=== PATIENT | male | born 1965 | race Caucasian/White ===

== ENCOUNTER 2018-06-04 07:45 | Day surgery (SDC) | payer OTHER ==
[2018-05-30 14:42] LABS: Basophils # (auto) 0 uL; Basophils % (auto) 0.5 % (0.0-2.0); Eosinophils # (auto) 0.2 uL; Eosinophils % (auto) 2.1 % (0.0-7.0); Hematocrit 50.2 % (41.0-53.0); Hemoglobin 16.8 g/dL (13.5-17.5); Lymphocytes # (auto) 0.7 uL; Lymphocytes % (auto) 7.7 % (10.0-50.0); Mean Corpuscular Hemoglobin 31.2 pg (28.0-32.0); Mean Corpuscular Hgb Conc. 33.6 g/dL (32.0-36.0); Mean Corpuscular Volume 92.9 fL (80.0-100.0); Monocytes # (auto) 0.7 uL; Monocytes % (auto) 8.2 % (0.0-12.0); Neutrophils # (auto) 7.1 uL; Neutrophils % (auto) 81.5 % (37.0-80.0); Platelet Count (auto) 251 10^3/uL (140-450); Red Cell Distribution Width 15.6 % (11.8-14.3); White Blood Cell 8.7 10^3/uL (4.4-10.8)
[2018-05-30 14:48] LABS: Urine Bacteria NONE SEEN /hpf (None Seen); Urine Blood Negative /uL (Negative); Urine Specific Gravity 1.005 (1.001-1.035); Urine WBC 1 /hpf (0 - 3)
[2018-05-30 15:00] LABS: Albumin 3.5 g/dL (3.4-5.0); Calcium 8.8 mg/dL (8.5-10.1); Potassium 4.1 mmol/L (3.5-5.1)
[2018-05-30 15:03] LABS: Bilirubin, Total 0.4 mg/dL (0.2-1.0); Total Protein 8.2 g/dL (6.4-8.2)
[2018-05-30 15:16] LABS: INR 0.98 (0.9-1.15); Partial Thromboplastin Time 27.7 sec (23.78-33.04); Prothrombin Time 10.5 sec (9.27-12.13)
[~2018-06-04] VITALS: Ht 185.4 cm; Wt 82.1 kg
[~2018-06-04 07:45] MED LIST: ADAL40IN SC
[2018-06-04] MEDS ORDERED: ceFAZolin 1GM/50ML 50 ML IV ONE (07:55)
[2018-06-04] MEDS ORDERED: MIDAZOLAM HCL 1MG/1ML-2 ML VIAL ONE (09:35)
[2018-06-04] MEDS ORDERED: SODIUM CHLORIDE LOCK 10 ML ONE (09:35)
[2018-06-04] MEDS ORDERED: fentaNYL CITRATE 100 MCG/2 ML VL ONE (09:35)
[2018-06-04] MEDS ORDERED: ONDANSETRON HCL 4 MG/2 ML VIAL ONE (09:35)
[2018-06-04] MEDS ORDERED: PROPOFOL 10 MG/ML 20 ML IV ONE (09:35)
[2018-06-04 10:54] VITALS: BP 156/96
== END 2018-06-04 11:00 | disposition home or self-care (01) ==
LOC: SUR 07:45
PROVIDERS: ATTEND Podiatrist Foot & Ankle Surgery
DX: M89.8X7 Other specified disorders of bone, ankle and foot (principal); K50.90 Crohn's disease, unspecified, without complications; I12.9 Hypertensive chronic kidney disease with stage 1 through stage 4 chronic kidney disease, or unspecified chronic kidney disease; N18.2 Chronic kidney disease, stage 2 (mild)
CPT/HCPCS: 28112; 36415; 80053; 81001; 85025; 85610; 85730; 88304; 88311; J0690; J2250; J2405; J2704; J3010; L3260

== ENCOUNTER → 2018-08-06 | Day surgery (SDC) | payer OTHER ==
[2018-08-05 15:35] LABS: Albumin 3.2 g/dL (3.4-5.0); Calcium 8.7 mg/dL (8.5-10.1); Potassium 3.8 mmol/L (3.5-5.1)
[2018-08-05 15:38] LABS: BUN/Creatinine Ratio 19.6; Bilirubin, Total 0.3 mg/dL (0.2-1.0); Total Protein 8.3 g/dL (6.4-8.2)
[2018-08-05 15:41] LABS: INR 1.02 (0.9-1.15); Prothrombin Time 10.9 sec (9.27-12.13)
[2018-08-05 16:14] LABS: Urine Bacteria NONE SEEN /hpf (None Seen); Urine Blood Negative /uL (Negative); Urine Specific Gravity 1.005 (1.001-1.035); Urine WBC <1 /hpf (0 - 3)
[~2018-08-06] VITALS: Ht 185.4 cm; Wt 77.1 kg
[~2018-08-06] MED LIST changes: +HYDR50TA15 PO; +HYDROmorphone HCL 2 MG/ML VL ONE; +KETOROLAC TROMETH 30 MG/ML 1ML VIAL IV ONE; +LABETALOL HCL 5 MG/ML 4ML SYRINGE IV PRN; +MIDAZOLAM HCL 1MG/1ML-2 ML VIAL IV PRN; +MIDAZOLAM HCL 1MG/1ML-2 ML VIAL ONE; +MORPHINE SULFATE 4 MG/ML SYR/VIAL IV ONE; +MORPHINE SULFATE 4 MG/ML SYR/VIAL IV PRN; +ONDANSETRON HCL 4 MG/2 ML VIAL IV ONE; +ceFAZolin 1GM VL ONE; +ceFAZolin 1GM/50ML 50 ML IV ONE; +fentaNYL CITRATE 100 MCG/2 ML VL ONE; +hydrALAZINE HCL 20 MG/ML VL IV PRN
[2018-08-06 16:18] LABS: Basophils # (auto) 0.1 uL; Basophils % (auto) 0.7 % (0.0-2.0); Eosinophils # (auto) 0.1 uL; Eosinophils % (auto) 1.8 % (0.0-7.0); Hemoglobin 15.7 g/dL (13.5-17.5); Lymphocytes # (auto) 0.9 uL; Lymphocytes % (auto) 11.5 % (10.0-50.0); Mean Corpuscular Hemoglobin 31.2 pg (28.0-32.0); Mean Corpuscular Hgb Conc. 32.7 g/dL (32.0-36.0); Mean Corpuscular Volume 95.3 fL (80.0-100.0); Monocytes # (auto) 0.8 uL; Monocytes % (auto) 10.5 % (0.0-12.0); Neutrophils # (auto) 5.8 uL; Neutrophils % (auto) 75.5 % (37.0-80.0); Nucleated Red Blood Cells % 0.1 %; Platelet Count (auto) 199 10^3/uL (140-450); Red Blood Cells 5.03 10^6/uL (4.5-5.90); Red Cell Distribution Width 14.6 % (11.8-14.3); White Blood Cell 7.7 10^3/uL (4.4-10.8)
[2018-08-06] MEDS: HYDROmorphone HCL 2 MG/ML VL IV PRN ×4 (17:43→18:16)
[2018-08-06 18:29] VITALS: BP 144/95
== END | disposition home or self-care (01) ==
LOC: SUR 12:48
PROVIDERS: ATTEND Podiatrist Foot & Ankle Surgery
DX: L03.115 Cellulitis of right lower limb (principal); I10 Essential (primary) hypertension; Z98.890 Other specified postprocedural states; Z79.899 Other long term (current) drug therapy
CPT/HCPCS: 10061; 36415; 80053; 81001; 85025; 85610; 85730; 87070; 87075; 87205; C1887; J0690; J1170; J2250; J3010; Q4138

== ENCOUNTER 2023-05-05 03:01 | Inpatient (IN) | payer BC, OTHER ==
[~2023-05-05] VITALS: Ht 188 cm; Wt 8.0 kg
[~2023-05-05 03:01] MED LIST changes: +HYDR-4297 PO; -HYDR50TA15 PO; -HYDROmorphone HCL 2 MG/ML VL ONE; -KETOROLAC TROMETH 30 MG/ML 1ML VIAL IV ONE; -LABETALOL HCL 5 MG/ML 4ML SYRINGE IV PRN; -MIDAZOLAM HCL 1MG/1ML-2 ML VIAL IV PRN; -MIDAZOLAM HCL 1MG/1ML-2 ML VIAL ONE; -MORPHINE SULFATE 4 MG/ML SYR/VIAL IV ONE; -MORPHINE SULFATE 4 MG/ML SYR/VIAL IV PRN; -ONDANSETRON HCL 4 MG/2 ML VIAL IV ONE; -ceFAZolin 1GM VL ONE; -ceFAZolin 1GM/50ML 50 ML IV ONE; -fentaNYL CITRATE 100 MCG/2 ML VL ONE; -hydrALAZINE HCL 20 MG/ML VL IV PRN
[2023-05-05 04:00] LABS: Basophils # (auto) 0.1 10 ^3/uL (0-0.2); Basophils % (auto) 0.5 % (0.0-2.0); Eosinophils # (auto) 0.1 10 ^3/uL (0-0.8); Eosinophils % (auto) 1.2 % (0.0-7.0); Hematocrit 46.1 % (41.0-53.0); Hemoglobin 15.2 g/dL (13.5-17.5); Lymphocytes % (auto) 8.6 % (10.0-50.0); Mean Corpuscular Hemoglobin 29.5 pg (28.0-32.0); Mean Corpuscular Volume 89.3 fL (80.0-100.0); Monocytes # (auto) 1.2 10 ^3/uL (0-1.3); Monocytes % (auto) 9.6 % (0.0-12.0); Neutrophils # (auto) 9.7 10 ^3/uL (1.6-8.6); Neutrophils % (auto) 80.1 % (37.0-80.0); Red Blood Cells 5.16 10^6/uL (4.5-5.90); Red Cell Distribution Width 15.3 % (11.8-14.3); White Blood Cell 12.1 10^3/uL (4.4-10.8)
[2023-05-05 04:06] LABS: Urine Bacteria FEW /hpf (None Seen); Urine Blood 2+ /uL (Negative); Urine Clarity CLOUDY (Clear); Urine Protein, UAD 1+ (Negative); Urine Specific Gravity 1.013 (1.001-1.035); Urine Urobilinogen Normal (Negative); Urine WBC 1721 /hpf (0 - 3); Urine WBC Clumps PRESENT /hpf (None Seen)
[2023-05-05 04:08] LABS: Urine Color Straw (Yellow)
[2023-05-05 04:13] LABS: Alanine Aminotransferase 17 U/L (7-40); Albumin 4.6 g/dL (3.2-4.8); Alkaline Phosphatase 71 U/L (46-116); Anion Gap 11 (5-15); Aspartate Aminotransferase < 8 U/L (13-40); BUN/Creatinine Ratio 15.1 (10.0-20.0); Bilirubin, Total 0.2 mg/dL (0.2-1.0); Calcium 9.7 mg/dL (8.7-10.4); Carbon Dioxide 23 mmol/L (20-30); Chloride 102 mmol/L (98-107); Glucose 71 mg/dL (74-106); Sodium 136 mmol/L (136-145); Total Protein 8.8 g/dL (5.7-8.2)
[2023-05-05 04:41] LABS: Blood Urea Nitrogen 87 mg/dL (9-23); Potassium 5.6 mmol/L (3.5-5.1)
[2023-05-05] MEDS ORDERED: HYDROmorphone HCL 2 MG/ML VL/or syr IV ONE ×3 (06:00→12:45)
[2023-05-05] MEDS ORDERED: SODIUM BICARBONATE 8.4% INJ 50ML SYRINGE IV ONE (06:00)
[2023-05-05] MEDS ORDERED: SODIUM CHLORIDE 0.9% 2,250 ML IV ONE (06:00)
[2023-05-05] MEDS ORDERED: ONDANSETRON HCL 4 MG/2 ML VIAL IV ONE ×2 (06:00→07:00)
[2023-05-05] MEDS ORDERED: InsuLIN REG 1unit/0.01ml Soln (100units/ml) IV ONE (06:00)
[2023-05-05] MEDS ORDERED: CALCIUM GLUC 1,000mg/50ml-NS 50 ML IV ONE (06:00)
[2023-05-05] MEDS ORDERED: SODIUM ZIRCONIUM CYCL 10 GM PAK PO ONE (06:00)
[2023-05-05] MEDS ORDERED: DEXTROSE (50%) 50ML SYRG IV ONE (06:00)
[2023-05-05] MEDS ORDERED: cefTRIAXone 1GM/50ML D5W 50 ML IV ONE (06:00)
[2023-05-05 06:26] VITALS: PULSE 113; RESP 24; O2SAT 97
[2023-05-05 08:10] VITALS: PULSE 118; RESP 20; O2SAT 98
[2023-05-05] MEDS ORDERED: MORPHINE SULFATE INJ 2 MG/ml SYRG IV PRN (09:30)
[2023-05-05] MEDS ORDERED: SODIUM CHLORIDE 0.9% 1,000 ML IV SCH (09:30)
[2023-05-05] MEDS ORDERED: ACETAMINOPHEN 325 MG TAB PO PRN (09:30)
[2023-05-05] MEDS ORDERED: NITROGLYCERIN 0.4 MG SL TAB SL PRN (09:30)
[2023-05-05] MEDS ORDERED: BELLADONNA ALKAL/OPIUM (16.2/30MG) RECT SUPP PR ONE (09:45)
[2023-05-05] MEDS ORDERED: HYDROmorphone HCL 2 MG/ML VL/or syr IV PRN (09:45)
[2023-05-05] MEDS: cefTRIAXone 1GM/50ML D5W 50 ML IV SCH (10:20)
[2023-05-05 12:37] LABS: Protein, Urine 44.7 mg/dL (0.0-11.9)
[2023-05-05 12:40] LABS: Creatinine, Urine 32.35 mg/dL (30.0-125.0)
[2023-05-05] MEDS: SODIUM CHLORIDE 0.9% 1,000 ML IV SCH ×2 (12:40→23:47)
[2023-05-05] MEDS ORDERED: LABETALOL HCL 5 MG/ML 4ML SYRINGE IV ONE (12:45)
[2023-05-05 20:05] VITALS: PULSE 98; RESP 14; O2SAT 97
[2023-05-05] MEDS: hydrALAZINE HCL 20 MG/ML VL IV PRN (20:41)
[2023-05-05] MEDS: HYDROmorphone HCL 2 MG/ML VL/or syr IV PRN ×2 (20:42→23:53)
[2023-05-06] MEDS: SODIUM CHLORIDE 0.9% 1,000 ML IV SCH ×2 (00:49→18:00)
[2023-05-06] MEDS: HYDROcodone-ACET 5/325MG TAB PO PRN ×2 (00:49→05:59)
[2023-05-06] MEDS ORDERED: ONDANSETRON HCL 4 MG/2 ML VIAL ONE (02:19)
[2023-05-06] MEDS: hydrALAZINE HCL 20 MG/ML VL IV PRN (03:20)
[2023-05-06] MEDS: HYDROmorphone HCL 2 MG/ML VL/or syr IV PRN ×4 (03:21→13:19)
[2023-05-06 04:44] LABS: Basophils # (auto) 0.1 10 ^3/uL (0-0.2); Basophils % (auto) 0.6 % (0.0-2.0); Eosinophils # (auto) 0.3 10 ^3/uL (0-0.8); Eosinophils % (auto) 2.4 % (0.0-7.0); Hematocrit 46.3 % (41.0-53.0); Hemoglobin 15.4 g/dL (13.5-17.5); Lymphocytes # (auto) 1.4 10 ^3/uL (0.4-5.4); Lymphocytes % (auto) 11.9 % (10.0-50.0); Mean Corpuscular Hemoglobin 29.5 pg (28.0-32.0); Mean Corpuscular Hgb Conc. 33.3 g/dL (32.0-36.0); Mean Corpuscular Volume 88.4 fL (80.0-100.0); Monocytes # (auto) 1.1 10 ^3/uL (0-1.3); Monocytes % (auto) 8.8 % (0.0-12.0); Neutrophils # (auto) 9.1 10 ^3/uL (1.6-8.6); Neutrophils % (auto) 76.3 % (37.0-80.0); Red Blood Cells 5.23 10^6/uL (4.5-5.90); Red Cell Distribution Width 15.1 % (11.8-14.3); White Blood Cell 11.9 10^3/uL (4.4-10.8)
[2023-05-06 04:57] LABS: Alanine Aminotransferase 14 U/L (7-40); Albumin 3.7 g/dL (3.2-4.8); Alkaline Phosphatase 59 U/L (46-116); Anion Gap 9 (5-15); Aspartate Aminotransferase 14 U/L (13-40); BUN/Creatinine Ratio 15.5 (10.0-20.0); Calcium 8.4 mg/dL (8.7-10.4); Carbon Dioxide 21 mmol/L (20-30); Chloride 103 mmol/L (98-107); Glucose 101 mg/dL (74-106); Potassium 4.6 mmol/L (3.5-5.1); Sodium 133 mmol/L (136-145)
[2023-05-06 04:58] LABS: Bilirubin, Total 0.3 mg/dL (0.2-1.0); Total Protein 7.2 g/dL (5.7-8.2)
[2023-05-06 05:04] LABS: Blood Urea Nitrogen 70 mg/dL (9-23)
[2023-05-06 07:28] VITALS: PULSE 98; RESP 17; O2SAT 96
[2023-05-06 08:55] VITALS: BP 126/87; PULSE 109; RESP 20; TEMP 98.3; O2SAT 97
[2023-05-06] MEDS: cefTRIAXone 1GM/50ML D5W 50 ML IV SCH (10:04)
[2023-05-06] MEDS ORDERED: TAMS-35 PO (10:39)
[2023-05-06] MEDS ORDERED: LACTULOSE 20Gm/30ML SOLN PO PRN (14:00)
[2023-05-06] MEDS ORDERED: METOPROLOL TARTRATE 1MG/1ML-5ML VIAL IV ONE (14:00)
[2023-05-06 14:15] VITALS: BP 145/99; PULSE 55; RESP 21; O2SAT 96
[2023-05-06] MEDS ORDERED: ADENOSINE 6 MG/2 ML INJ IV ONE (14:45)
[2023-05-06 15:02] LABS: INR 1.16 (0.9-1.15); Prothrombin Time 12.1 sec (9.3-11.8)
[2023-05-06] MEDS ORDERED: METOPROLOL SUCCINATE XL 50 MG TAB PO ONE (15:15)
[2023-05-06] MEDS ORDERED: AMIODARONE HCL 200 MG TAB PO ONE (15:15)
[2023-05-06] MEDS: metroNIDAZOLE 500MG/100ML 100 ML IV SCH ×2 (16:00→21:39)
[2023-05-06] MEDS ORDERED: dilTIAZem 25 MG/5 ML VIAL IV ONE (16:15)
[2023-05-06 16:57] VITALS: BP 132/94; PULSE 100; RESP 20; TEMP 98.3; O2SAT 97
[2023-05-06] MEDS: BETHANECHOL CHLORIDE 25 MG TAB PO SCH ×2 (17:30→21:37)
[2023-05-06 17:52] LABS: Magnesium 1.8 mg/dL (1.6-2.6)
[2023-05-06 20:00] VITALS: PULSE 94
[2023-05-06] MEDS: AMIODARONE HCL 200 MG TAB PO SCH (21:37)
[2023-05-06 22:00] VITALS: BP 133/89; PULSE 95; RESP 20; TEMP 98.2; O2SAT 96
[2023-05-06 23:40] LABS: INR 1.15 (0.9-1.15); Partial Thromboplastin Time 34.5 SEC (24.5-34.5)
[2023-05-07] VITALS (10 sets, daily range): BP systolic 114–139; BP diastolic 81–99; PULSE 67–95; RESP 17–19; TEMP 97.4–98.1; O2SAT 92–99
[2023-05-07] MEDS: HYDROmorphone HCL 2 MG/ML VL/or syr IV PRN ×4 (01:59→21:17)
[2023-05-07] MEDS: metroNIDAZOLE 500MG/100ML 100 ML IV SCH ×3 (06:10→21:18)
[2023-05-07] MEDS: BETHANECHOL CHLORIDE 25 MG TAB PO SCH ×3 (06:10→21:14)
[2023-05-07 07:12] LABS: Basophils # (auto) 0.1 10 ^3/uL (0-0.2); Basophils % (auto) 0.6 % (0.0-2.0); Eosinophils # (auto) 0.3 10 ^3/uL (0-0.8); Eosinophils % (auto) 2.4 % (0.0-7.0); Hematocrit 45.1 % (41.0-53.0); Hemoglobin 14.8 g/dL (13.5-17.5); Lymphocytes # (auto) 1.5 10 ^3/uL (0.4-5.4); Lymphocytes % (auto) 12.3 % (10.0-50.0); Mean Corpuscular Hemoglobin 29.1 pg (28.0-32.0); Mean Corpuscular Hgb Conc. 32.9 g/dL (32.0-36.0); Mean Corpuscular Volume 88.5 fL (80.0-100.0); Monocytes % (auto) 8.6 % (0.0-12.0); Neutrophils % (auto) 76.1 % (37.0-80.0); Nucleated Red Blood Cells % 0.1 %; Red Cell Distribution Width 14.9 % (11.8-14.3); White Blood Cell 11.8 10^3/uL (4.4-10.8)
[2023-05-07 07:15] LABS: Calcium 8.7 mg/dL (8.7-10.4); Chloride 105 mmol/L (98-107); Potassium 3.7 mmol/L (3.5-5.1); Sodium 136 mmol/L (136-145)
[2023-05-07 07:16] LABS: Anion Gap 12 (5-15); Carbon Dioxide 19 mmol/L (20-30)
[2023-05-07 07:21] LABS: BUN/Creatinine Ratio 12.6 (10.0-20.0); Glucose 88 mg/dL (74-106)
[2023-05-07 07:29] LABS: Blood Urea Nitrogen 53 mg/dL (9-23)
[2023-05-07] MEDS ORDERED: fentaNYL CITRATE 100 MCG/2 ML VL ONE (07:51)
[2023-05-07] MEDS ORDERED: MIDAZOLAM HCL 2MG/2ML 2ml VIAL (1mg/ml) ONE ×2 (07:51→09:25)
[2023-05-07] MEDS ORDERED: PROPOFOL 10 MG/ML 20 ML IV ONE ×3 (07:51→10:39)
[2023-05-07] MEDS ORDERED: SODIUM CHLORIDE LOCK 10 ML ONE (07:51)
[2023-05-07] MEDS ORDERED: ONDANSETRON HCL 4 MG/2 ML VIAL ONE (07:51)
[2023-05-07] MEDS ORDERED: BUPIVACAINE 0.5% P/F INJ 10 ML VIAL ONE (07:51)
[2023-05-07] MEDS ORDERED: DexAMETHasone SOD PHOS 10MG/1ML VIAL INJ ONE (07:51)
[2023-05-07] MEDS: cefTRIAXone 1GM/50ML D5W 50 ML IV SCH (08:39)
[2023-05-07] MEDS: METOPROLOL SUCCINATE XL 50 MG TAB PO SCH (08:39)
[2023-05-07] MEDS: AMIODARONE HCL 200 MG TAB PO SCH ×2 (08:40→21:14)
[2023-05-07] MEDS ORDERED: EPINEPHrine HCL 1 MG/1 ML AMP ONE (08:47)
[2023-05-07] MEDS ORDERED: HYDROmorphone HCL 2 MG/ML VL/or syr IV PRN ×2 (09:00)
[2023-05-07] MEDS ORDERED: MORPHINE SULFATE INJ 2 MG/ml SYRG IV PRN (09:00)
[2023-05-07] MEDS ORDERED: METOCLOPRAMIDE HCL 5MG/ml INJ 2ml VIAL IV PRN (09:00)
[2023-05-07] MEDS ORDERED: CIPROFLOXACIN 400MG/200ML 200 ML IV ONE (09:10)
[2023-05-07] MEDS: HYDROcodone-ACET 5/325MG TAB PO PRN (20:21)
[2023-05-08] VITALS (7 sets, daily range): BP systolic 147–161; BP diastolic 97–102; PULSE 73–82; RESP 18–21; TEMP 97.2–98.1; O2SAT 94–100
[2023-05-08] MEDS: HYDROmorphone HCL 2 MG/ML VL/or syr IV PRN ×7 (00:13→21:06)
[2023-05-08] MEDS: HYDROcodone-ACET 5/325MG TAB PO PRN ×3 (01:43→18:31)
[2023-05-08] MEDS: metroNIDAZOLE 500MG/100ML 100 ML IV SCH (06:15)
[2023-05-08] MEDS: BETHANECHOL CHLORIDE 25 MG TAB PO SCH ×3 (06:15→21:07)
[2023-05-08 07:05] LABS: Chloride 106 mmol/L (98-107); Potassium 4.2 mmol/L (3.5-5.1); Sodium 136 mmol/L (136-145)
[2023-05-08 07:06] LABS: Anion Gap 10 (5-15); Calcium 8.7 mg/dL (8.5-10.1); Carbon Dioxide 20 mmol/L (20-30)
[2023-05-08 07:11] LABS: Glucose 139 mg/dL (74-106)
[2023-05-08 07:12] LABS: Blood Urea Nitrogen 42 mg/dL (9-23)
[2023-05-08 07:55] LABS: Basophils # (auto) 0 10 ^3/uL (0-0.2); Basophils % (auto) 0.3 % (0.0-2.0); Eosinophils # (auto) 0.2 10 ^3/uL (0-0.8); Hemoglobin 14.7 g/dL (13.5-17.5); Lymphocytes # (auto) 1.5 10 ^3/uL (0.4-5.4); Lymphocytes % (auto) 10.2 % (10.0-50.0); Mean Corpuscular Hemoglobin 29.3 pg (28.0-32.0); Mean Corpuscular Hgb Conc. 31.2 g/dL (32.0-36.0); Mean Corpuscular Volume 93.7 fL (80.0-100.0); Monocytes # (auto) 1.2 10 ^3/uL (0-1.3); Neutrophils # (auto) 12.1 10 ^3/uL (1.6-8.6); Neutrophils % (auto) 80.5 % (37.0-80.0); Nucleated Red Blood Cells % 0.1 %; Red Blood Cells 5.02 10^6/uL (4.5-5.90); Red Cell Distribution Width 15.4 % (11.8-14.3)
[2023-05-08] MEDS: METOPROLOL SUCCINATE XL 50 MG TAB PO SCH (09:01)
[2023-05-08] MEDS: cefTRIAXone 1GM/50ML D5W 50 ML IV SCH (09:02)
[2023-05-08] MEDS: AMIODARONE HCL 200 MG TAB PO SCH ×2 (09:02→21:06)
[2023-05-08] MEDS: diphenhdrAMINE HCL 25 MG CAP PO PRN (12:14)
[2023-05-09] VITALS (7 sets, daily range): BP systolic 131–169; BP diastolic 71–108; PULSE 70–91; RESP 16–20; TEMP 97.6–98.7; O2SAT 95–98
[2023-05-09] MEDS: HYDROmorphone HCL 2 MG/ML VL/or syr IV PRN ×6 (00:14→15:55)
[2023-05-09] MEDS: BETHANECHOL CHLORIDE 25 MG TAB PO SCH ×3 (06:08→20:05)
[2023-05-09 07:17] LABS: Basophils # (auto) 0 10 ^3/uL (0-0.2); Basophils % (auto) 0.5 % (0.0-2.0); Eosinophils # (auto) 0.6 10 ^3/uL (0-0.8); Eosinophils % (auto) 6.7 % (0.0-7.0); Hematocrit 45.3 % (41.0-53.0); Lymphocytes # (auto) 1.5 10 ^3/uL (0.4-5.4); Lymphocytes % (auto) 15.9 % (10.0-50.0); Mean Corpuscular Hemoglobin 29.4 pg (28.0-32.0); Mean Corpuscular Hgb Conc. 33.2 g/dL (32.0-36.0); Mean Corpuscular Volume 88.6 fL (80.0-100.0); Monocytes # (auto) 0.8 10 ^3/uL (0-1.3); Monocytes % (auto) 8.9 % (0.0-12.0); Neutrophils # (auto) 6.3 10 ^3/uL (1.6-8.6); Nucleated Red Blood Cells % 0.1 %; Red Blood Cells 5.11 10^6/uL (4.5-5.90); White Blood Cell 9.3 10^3/uL (4.4-10.8)
[2023-05-09 07:36] LABS: Anion Gap 9 (5-15); Carbon Dioxide 22 mmol/L (20-30); Chloride 105 mmol/L (98-107); Potassium 3.5 mmol/L (3.5-5.1); Sodium 136 mmol/L (136-145)
[2023-05-09 07:37] LABS: Calcium 8.6 mg/dL (8.5-10.1)
[2023-05-09 07:42] LABS: BUN/Creatinine Ratio 15.6 (10.0-20.0); Blood Urea Nitrogen 42 mg/dL (9-23); Glucose 89 mg/dL (74-106)
[2023-05-09] MEDS: AMIODARONE HCL 200 MG TAB PO SCH ×2 (08:41→20:04)
[2023-05-09] MEDS: cefTRIAXone 1GM/50ML D5W 50 ML IV SCH (08:41)
[2023-05-09] MEDS: METOPROLOL SUCCINATE XL 50 MG TAB PO SCH (08:41)
[2023-05-09] MEDS: hydrALAZINE HCL 20 MG/ML VL IV PRN ×2 (13:00→23:51)
[2023-05-09] MEDS: HYDROcodone-ACET 5/325MG TAB PO PRN ×3 (13:41→23:50)
[2023-05-09] MEDS: AMPICILLIN INJ 1 GM in SODIUM CHL 0.9% 100 ML IV SCH ×2 (17:10→20:05)
[2023-05-09] MEDS: diphenhdrAMINE HCL 25 MG CAP PO PRN (20:20)
[2023-05-10] MEDS: AMPICILLIN INJ 1 GM in SODIUM CHL 0.9% 100 ML IV SCH ×2 (03:05→08:29)
[2023-05-10] MEDS: HYDROcodone-ACET 5/325MG TAB PO PRN ×2 (03:58→08:30)
[2023-05-10] MEDS: diphenhdrAMINE HCL 25 MG CAP PO PRN (03:58)
[2023-05-10 04:40] VITALS: BP 142/100; PULSE 89; RESP 20; TEMP 97.9; O2SAT 100
[2023-05-10 06:30] LABS: Anion Gap 12 (5-15); Carbon Dioxide 19 mmol/L (20-30); Chloride 105 mmol/L (98-107); Potassium 3.6 mmol/L (3.5-5.1); Sodium 136 mmol/L (136-145)
[2023-05-10 06:31] LABS: Calcium 8.9 mg/dL (8.5-10.1)
[2023-05-10 06:32] LABS: Hematocrit 49.7 % (41.0-53.0); Hemoglobin 16.8 g/dL (13.5-17.5); Mean Corpuscular Hemoglobin 29.5 pg (28.0-32.0); Mean Corpuscular Hgb Conc. 33.8 g/dL (32.0-36.0); Mean Corpuscular Volume 87.4 fL (80.0-100.0); Red Blood Cells 5.68 10^6/uL (4.5-5.90); White Blood Cell 11.7 10^3/uL (4.4-10.8)
[2023-05-10] MEDS: BETHANECHOL CHLORIDE 25 MG TAB PO SCH (06:34)
[2023-05-10 06:35] LABS: Glucose 91 mg/dL (74-106)
[2023-05-10 06:36] LABS: BUN/Creatinine Ratio 13.9 (10.0-20.0); Blood Urea Nitrogen 33 mg/dL (9-23)
[2023-05-10 07:12] LABS: Basophils % (manual) 0 (0.0-2.0); Blast Cells 0; Myelocytes % 0; Promyelocytes % 0; Reactive Lymphocytes 0
[2023-05-10 08:00] VITALS: RESP 18
[2023-05-10] MEDS: METOPROLOL SUCCINATE XL 50 MG TAB PO SCH (08:30)
[2023-05-10] MEDS: AMIODARONE HCL 200 MG TAB PO SCH (08:30)
[2023-05-10 09:00] VITALS: BP 133/100; PULSE 91; RESP 18; TEMP 97.9; O2SAT 97
[2023-05-10 09:14] LABS: Band Neutrophils % (manual) 2; Eosinophils % (manual) 6 (0-7); Lymphocytes % (manual) 15 (10.0-50.0); Metamyelocytes % 1; Monocytes % (manual) 6 (0-12)
[2023-05-10 09:15] LABS: Platelet Estimate Adequate
[2023-05-10] MEDS ORDERED: BET25T PO (11:01)
[2023-05-10] MEDS ORDERED: AMIO200T33 PO (11:01)
[2023-05-10] MEDS ORDERED: LINE1TAB10 PO (11:03)
== END 2023-05-10 14:12 | disposition home or self-care (01) | DRG 666 ==
LOC: ER 03:01 → TELE 09:35 → TELE-WESTW 05-06 09:05
PROVIDERS: ADMIT Nurse Practitioner Family; ATTEND Internal Medicine Pulmonary Disease
PROC: 0VT08ZZ Resection of Prostate, Via Natural or Artificial Opening Endoscopic (ICD-10-PCS; principal; 2023-05-07 09:24)
PROC: 0TCC8ZZ Extirpation of Matter from Bladder Neck, Via Natural or Artificial Opening Endoscopic (ICD-10-PCS; 2023-05-07 09:24)
DX: N13.6 Pyonephrosis (principal); E87.20 Acidosis, unspecified; I47.10 Supraventricular tachycardia, unspecified; I48.92 Unspecified atrial flutter; E87.5 Hyperkalemia; N17.9 Acute kidney failure, unspecified; N31.9 Neuromuscular dysfunction of bladder, unspecified; R31.9 Hematuria, unspecified; N18.31 Chronic kidney disease, stage 3a; N40.1 Benign prostatic hyperplasia with lower urinary tract symptoms; R33.8 Other retention of urine; I12.9 Hypertensive chronic kidney disease with stage 1 through stage 4 chronic kidney disease, or unspecified chronic kidney disease; I48.0 Paroxysmal atrial fibrillation; Z79.899 Other long term (current) drug therapy; Z80.3 Family history of malignant neoplasm of breast; Z86.16 Personal history of COVID-19; Z90.79 Acquired absence of other genital organ(s)
CPT/HCPCS: 36415; 71045; 74176; 76775; 76856; 80048; 80053; 80061; 81001; 82570; 82962; 83036; 83605; 83735; 83880; 83930; 84132; 84156; 84300; 84443; 84484; 85007; 85025; 85027; 85610; 85730; 87040; 87086; 93005; 93306; 96365; 96375; G0378; J0153; J0171; J0696; J1100; J1815; J2250; J2405; J2704; J3490

== ENCOUNTER 2024-01-17 14:58 | Inpatient (IN) | payer BC ==
[~2024-01-17] VITALS: Ht 175.3 cm; Wt 80.0 kg
[~2024-01-17 14:58] MED LIST changes: -ADAL40IN SC; +AMIO200T33 PO; +BET25T PO; -HYDR-4297 PO; +LINE1TAB10 PO; +TAMS-35 PO
[2024-01-17] MEDS: ASPirin 325 MG TAB PO ONE (15:15)
[2024-01-17] MEDS: NITROGLYCERIN 0.4 MG SL TAB SL ONE (15:15)
[2024-01-17 16:05] LABS: Basophils # (auto) 0 10 ^3/uL (0-0.2); Eosinophils # (auto) 0.2 10 ^3/uL (0-0.8); Lymphocytes # (auto) 1.2 10 ^3/uL (0.4-5.4); Mean Corpuscular Volume 96.6 fL (80.0-100.0); Monocytes # (auto) 0.8 10 ^3/uL (0-1.3); Nucleated Red Blood Cells % 0.1 %
[2024-01-17 16:07] LABS: Basophils % (auto) 0.2 % (0.0-2.0); Eosinophils % (auto) 1.9 % (0.0-7.0); Hemoglobin 19.1 g/dL (13.5-17.5); Lymphocytes % (auto) 11.6 % (10.0-50.0); Mean Corpuscular Hemoglobin 32.7 pg (28.0-32.0); Mean Corpuscular Hgb Conc. 33.9 g/dL (32.0-36.0); Neutrophils % (auto) 78.3 % (37.0-80.0); Red Blood Cells 5.84 10^6/uL (4.5-5.90); Red Cell Distribution Width 15.5 % (11.8-14.3); White Blood Cell 10.2 10^3/uL (4.4-10.8)
[2024-01-17] MEDS: HYDROcodone-ACET 10/325MG TAB PO ONE (16:15)
[2024-01-17 16:17] LABS: Hematocrit 56.5 % (41.0-53.0)
[2024-01-17 16:24] LABS: Alanine Aminotransferase 31 U/L (7-40); Albumin 4.1 g/dL (3.2-4.8); Alkaline Phosphatase 60 U/L (46-116); Anion Gap 6 (5-15); Aspartate Aminotransferase 28 U/L (13-40); BUN/Creatinine Ratio 10.5 (10.0-20.0); Blood Urea Nitrogen 22 mg/dL (9-23); Calcium 9.6 mg/dL (8.7-10.4); Carbon Dioxide 25 mmol/L (20-30); Chloride 103 mmol/L (98-107); Glucose 85 mg/dL (74-106); Magnesium 2.3 mg/dL (1.6-2.6); Potassium 4.2 mmol/L (3.5-5.1); Sodium 134 mmol/L (136-145)
[2024-01-17 16:25] LABS: Bilirubin, Total 0.4 mg/dL (0.2-1.0); Total Protein 7.3 g/dL (5.7-8.2)
[2024-01-17 16:27] LABS: Partial Thromboplastin Time 27.7 SEC (24.5-34.5); Prothrombin Time 11.6 sec (9.3-11.8)
[2024-01-17] MEDS ORDERED: NITROGLYCERIN 0.4 MG SL TAB SL PRN (19:00)
[2024-01-17] MEDS ORDERED: ONDANSETRON HCL 4 MG/2 ML VIAL IV PRN (19:00)
[2024-01-17] MEDS ORDERED: MORPHINE SULFATE INJ 2 MG/ml SYRG IV PRN (19:00)
[2024-01-17] MEDS: amLODIPine BESYLATE 5 MG TAB PO ONE (19:49)
[2024-01-17 22:10] VITALS: BP 154/99; PULSE 86; RESP 18; TEMP 97.8; O2SAT 97
[2024-01-17 23:17] VITALS: BP 154/99; PULSE 86; RESP 18; TEMP 97.8; O2SAT 97
[2024-01-17] MEDS: ACETAMINOPHEN 325 MG TAB PO PRN (23:51)
[2024-01-18] VITALS (8 sets, daily range): BP systolic 127–144; BP diastolic 84–95; PULSE 63–84; RESP 16–18; TEMP 97.7–98.1; O2SAT 94–98
[2024-01-18] MEDS: TEMAZEPAM 15 MG CAP PO PRN (00:07)
[2024-01-18] MEDS ORDERED: AML5T PO (00:53)
[2024-01-18 06:06] LABS: Chloride 107 mmol/L (98-107); Potassium 3.7 mmol/L (3.5-5.1); Sodium 137 mmol/L (136-145)
[2024-01-18 06:07] LABS: Anion Gap 3 (5-15); Carbon Dioxide 27 mmol/L (20-30)
[2024-01-18 06:13] LABS: BUN/Creatinine Ratio 13.8 (10.0-20.0); Blood Urea Nitrogen 31 mg/dL (9-23); Glucose 89 mg/dL (74-106)
[2024-01-18] MEDS: ASPirin 81 mg TAB PO SCH (09:37)
[2024-01-18] MEDS: amLODIPine BESYLATE 5 MG TAB PO SCH (09:38)
[2024-01-18] MEDS ORDERED: amLODIPine BESYLATE 5 MG TAB PO SCH (10:00)
[2024-01-19 01:00] VITALS: BP 128/69; PULSE 79; RESP 18; TEMP 97.9; O2SAT 98
[2024-01-19 05:00] VITALS: BP 128/71; PULSE 60; RESP 18; TEMP 98; O2SAT 97
[2024-01-19 07:19] LABS: Basophils # (auto) 0 10 ^3/uL (0-0.2); Basophils % (auto) 0.5 % (0.0-2.0); Eosinophils # (auto) 0.5 10 ^3/uL (0-0.8); Eosinophils % (auto) 5.2 % (0.0-7.0); Hematocrit 52.4 % (41.0-53.0); Hemoglobin 17.8 g/dL (13.5-17.5); Lymphocytes # (auto) 1.1 10 ^3/uL (0.4-5.4); Lymphocytes % (auto) 12.5 % (10.0-50.0); Mean Corpuscular Hemoglobin 33.3 pg (28.0-32.0); Mean Corpuscular Hgb Conc. 34.1 g/dL (32.0-36.0); Mean Corpuscular Volume 97.9 fL (80.0-100.0); Monocytes # (auto) 0.8 10 ^3/uL (0-1.3); Monocytes % (auto) 9.4 % (0.0-12.0); Neutrophils # (auto) 6.4 10 ^3/uL (1.6-8.6); Neutrophils % (auto) 72.4 % (37.0-80.0); Nucleated Red Blood Cells % 0.1 %; Red Blood Cells 5.35 10^6/uL (4.5-5.90); Red Cell Distribution Width 15.6 % (11.8-14.3); White Blood Cell 8.9 10^3/uL (4.4-10.8)
[2024-01-19 07:20] LABS: Anion Gap 5 (5-15); Carbon Dioxide 27 mmol/L (20-30); Chloride 109 mmol/L (98-107); Potassium 4.1 mmol/L (3.5-5.1); Sodium 141 mmol/L (136-145)
[2024-01-19 07:21] LABS: Calcium 8.8 mg/dL (8.7-10.4)
[2024-01-19 07:26] LABS: BUN/Creatinine Ratio 13.2 (10.0-20.0); Blood Urea Nitrogen 27 mg/dL (9-23); Glucose 86 mg/dL (74-106)
[2024-01-19 08:00] VITALS: PULSE 63; RESP 18; O2SAT 98
[2024-01-19 09:10] VITALS: BP 144/93; PULSE 68; RESP 20; TEMP 98; O2SAT 95
[2024-01-19] MEDS: NIFEdipine ER 30 MG TAB PO SCH (09:27)
[2024-01-19] MEDS ORDERED: NIFE90TA75 PO (12:14)
[2024-01-19 12:55] VITALS: BP 169/106; PULSE 78; RESP 20; TEMP 97.5; O2SAT 97
[2024-01-19] MEDS: cloNIDine HCL 0.1 MG TAB PO PRN (13:09)
[2024-01-19] MEDS ORDERED: clonazePAM 0.5 MG TAB PO PRN (13:15)
[2024-01-19 15:33] VITALS: BP 149/91; PULSE 78; RESP 16; TEMP 97.5; O2SAT 98
== END 2024-01-19 16:00 | disposition home or self-care (01) | DRG 305 ==
LOC: EDBD 14:58 → ER 14:58 → TELE 19:07 → TELE-E-ADS 19:10 → EAST 01-18 17:56
PROVIDERS: ADMIT Nurse Practitioner; ATTEND Nurse Practitioner
DX: I16.0 Hypertensive urgency (principal); N18.4 Chronic kidney disease, stage 4 (severe); I13.10 Hypertensive heart and chronic kidney disease without heart failure, with stage 1 through stage 4 chronic kidney disease, or unspecified chronic kidney disease; N40.0 Benign prostatic hyperplasia without lower urinary tract symptoms; N31.9 Neuromuscular dysfunction of bladder, unspecified
CPT/HCPCS: 36415; 70450; 71045; 80048; 80053; 82962; 83735; 83880; 84484; 85025; 85379; 85610; 85730; 93005; 93306; G0378